=== PATIENT | male | born 1995 | race African-American/Black ===

== ENCOUNTER 2017-12-11 06:08 | Emergency (ER) | payer MEDICAID ==
[~2017-12-11] VITALS: Ht 185.4 cm; Wt 118.0 kg
[2017-12-11 06:23] VITALS: BP 145/88
[2017-12-11] MEDS ORDERED: FAMOTIDINE 20MG TABLET PO ONE (09:15)
[2017-12-11] MEDS ORDERED: DEXAMETHASONE 10 MG/ML VIAL IM ONE (09:15)
[2017-12-11] MEDS ORDERED: DIPHENHYDRAMINE 25MG CAPSULE PO ONE (09:15)
== END 2017-12-11 09:46 | disposition home or self-care (01) ==
LOC: ER 06:08
DX: L03.115 Cellulitis of right lower limb (principal); T78.40XA Allergy, unspecified, initial encounter; J45.909 Unspecified asthma, uncomplicated; Y92.89 Other specified places as the place of occurrence of the external cause
CPT/HCPCS: 96372; 99283; J1100; Q0163

== ENCOUNTER 2019-04-12 23:50 | Emergency (ER) | payer MEDICAID, OTHER ==
[~2019-04-12] VITALS: Ht 185.4 cm; Wt 109.0 kg
[2019-04-13 04:24] VITALS: BP 105/75
== END 2019-04-13 04:28 | disposition home or self-care (01) ==
LOC: ER 23:50
DX: B00.9 Herpesviral infection, unspecified (principal)
CPT/HCPCS: 99283